=== PATIENT | female | born 1980 | race Caucasian/White ===

== ENCOUNTER 2018-12-11 10:57 | Emergency (ER) | payer BC ==
[~2018-12-11] VITALS: Ht 165.1 cm; Wt 93.0 kg
[~2018-12-11 10:57] MED LIST: BUPROPION XL150 MG PO; EFFEXOR XR75 MG PO; ESCITALOPRAM OX20 MG PO; IBUPROFEN800 MG PO; KEFLEX500 MG PO; METFORMIN HCL500 MG PO; MIRENA1 EACH IY; NORCO 5-325 TA1 EACH PO; PHENAZOPYRIDIN200 MG PO
[2018-12-11] MEDS ORDERED: NORCO 5-325 TA1 EACH PO (16:17)
== END 2018-12-11 16:39 | disposition home or self-care (01) ==
LOC: ED 10:57
DX: M54.5 Low back pain (principal)
CPT/HCPCS: 72100; 99283-25; J1100

== ENCOUNTER 2024-05-24 08:48 | Day surgery (SDC) | payer OTHER ==
[~2024-05-24] VITALS: Ht 165.1 cm; Wt 93.1 kg
--- NOTE | ~2024-05-24 | OR ---
[facility] [address], [place] [address] Draft DATE OF OPERATION: 05/24/2024 SURGEON: Zahida Dash MD PREOPERATIVE DIAGNOSES: 1. Gastroesophageal reflux, persistent. 2. Colon screening. POSTOPERATIVE DIAGNOSES: 1. 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 2. Normal colon to cecum. PROCEDURES: 1. Esophagogastroduodenoscopy with biopsy. 2. Total colonoscopy to cecum. ANESTHESIA: Intravenous sedation; fentanyl 200 mcg and Versed 10 mg. INDICATION: This 43-year-old white woman is a patient of Konstantin Hale. She has issues related to gastroesophageal reflux. She has no associated dysphagia. She is on omeprazole, but continues to have "constant reflux." She is 219 pounds with a BMI of 36.4. As regard to the colon, she has family history of colon cancer in her maternal grandmother. She is referred for colon screening on the basis of her age predominantly. She has no symptoms of bleeding, diarrhea, or constipation currently. She understands the risk of upper endoscopy and colonoscopy and wished to proceed with them. FINDINGS: Upper endoscopy demonstrated a sizable hiatal hernia as well as distal esophagitis and Thakkar's epithelium. There was no other finding of concern. CLOtest was negative. On colonoscopy, complete colonoscopy was undertaken of the cecum. Her prep was generally good without much solid material. She did have a considerable number of very tiny seeds which on several occasions, though in aggregate she had no evidence of polyps, diverticulosis, colitis, or cancer. DESCRIPTION OF PROCEDURE: The patient was taken to the endoscopy suite and placed in the lateral decubitus position after undergoing lidocaine hypopharyngeal anesthesia. A bite block was placed. PATIENT NAME: STORMY DENTON OPERATIVE REPORT DATE OF : 76 REPORT #: [id number] PHYSICIAN: ZAHIDA DASH MD PCP: KONSTANTIN HALE PAC REPORT IS CONFIDENTIAL AND NOT TO BE RELEASED WITHOUT AUTHORIZATION [facility] [address], [place] [address] Draft An intravenous sedation induced to the point of slurred speech and nystagmus with full cardiopulmonary monitoring. An Olympus video upper endoscope was passed in the hypopharynx. The vocal cords were normal. Scope was advanced to the esophagus, throughout its length it was normal except in the distal portion where quite obviously noted was Thakkar's epithelium. Narrow-band imaging confirmed this as well. This was not extensive. Scope was passed into the stomach which was insufflated with air. Rugal folds were normal. Pylorus was normal. Scope was passed through into the duodenum, which was also normal. Biopsies were taken of the duodenum to assess for celiac disease. The scope was withdrawn and biopsies taken of the antrum for both MIKEL and pathologic testing. Retroflexed view showed a hiatal hernia, [id number] in size. The scope was withdrawn to the distal esophagus where biopsies obtained of the esophageal mucosa concordant to Thakkar's epithelium. The mid esophagus was biopsied as well. Scope was withdrawn and removed showing no other abnormality. Plans were then made for colonoscopy. Additional sedation was given. A digital rectal examination performed showing no sign of neoplasm. An Olympus video colonoscope was passed in the rectum and manipulated throughout the colon. Ultimately, the cecum was fully intubated. Irrigation was undertaken. The scope was carefully withdrawn. She had minute tiny seed particles throughout the colon which caused obstructive issues related to the valve of the scope, which was changed out a few times, but with irrigation and close inspection, entire colon was evaluated fully showing no sign of diverticular formation, colitis, cancer or polyps. The rectum was normal as well. The scope was removed and the patient was taken to the recovery room in good condition. CONCLUDING DIAGNOSES: 1. Normal colon. Recommend repeat colonoscopy in 10 years. 2. Hiatal hernia with Thakkar esophagus. At minimum, the patient should continue on PPI medication. She should have repeat upper endoscopy in 3 to 5 years based on the Thakkar's epithelium. We will see her back in the office and review her pathology reports in the near future. Weight loss would be beneficial for her reflux issues and she may ultimately require anti-reflux operation. MD CHRISTIANO Villagomez/MODL /[id number] PATIENT NAME: STORMY DENTON OPERATIVE REPORT DATE OF : 76 REPORT #: [id number] PHYSICIAN: ZAHIDA DASH MD PCP: KONSTANTIN HALE PAC REPORT IS CONFIDENTIAL AND NOT TO BE RELEASED WITHOUT AUTHORIZATION [address] [address] Draft cc: LILIANA Kate Copies: ~ PATIENT NAME: STORMY DENTON OPERATIVE REPORT DATE OF : 76 REPORT #: [id number] PHYSICIAN: ZAHIDA DASH MD PCP: KONSTANTIN HALE PAC REPORT IS CONFIDENTIAL AND NOT TO BE RELEASED WITHOUT AUTHORIZATION
[~2024-05-24 08:48] MED LIST changes: +BUSPIRONE HCL5 GM; +DICLOFENAC SODI75 MG PO; +HYDROCODON-ACE1 EA11 PO; +IBLOOD GLUCOSE TEST STRIP 1 EA TEST VI PRN; +LACTATED RINGER'S 1,000 ML IV SCH; +LIDOCAINE HCL 1% 5 ML SDV INJ ONE; +LIDOCAINE HCL 4% 50 ML BTL TOP SCH; +MIDAZOLAM HCL 5 MG/5 ML VIAL IV PRN; +OMEPRAZOLE40 MG PO; +VENTOLIN HFA18 GM INH; +ZYRTEC10 MG; +fentaNYL citrate 100 MCG/2 ML VIAL IV PRN
[2024-05-24] MEDS ORDERED: ZESTRIL5 MG PO (09:29)
[2024-05-24 09:36] VITALS: BP 104/62
[2024-05-24] MEDS ORDERED: fentaNYL citrate 100 MCG/2 ML VIAL ONE (10:35)
[2024-05-24] MEDS ORDERED: MIDAZOLAM HCL 5 MG/5 ML VIAL ONE (10:35)
[2024-05-24] MEDS ORDERED: MIDAZOLAM HCL 2 MG/2 ML VIAL ONE (11:28)
--- NOTE | 2024-05-24 11:50 | NUR ---
05/24/24 1150 Michelle Mcarthur 1142- PT ARRIVES TO PACU ASLEEP. PT IS AROUSABLE TO STIMULI. PT DENIES ANY PAIN OR NAUSEA. RESP EVEN AND UNLABORED. OXYGEN SAT HIGH 90'S TO 100% ON 3L VIA CO2 NC.
[2024-05-24 12:37] VITALS: BP 109/66
--- NOTE | 2024-05-28 17:09 | PATH ---
[facility] [address] [place], [place] [address] Signed SPECIMEN(S): A DUODENAL BIOPSY SPECIMEN(S): B ANTRUM BIOPSY SPECIMEN(S): C LOWER ESOPHAGEAL BIOPSY SPECIMEN(S): D MIDDLE ESOPHAGEAL BIOPSY SPECIMEN SOURCE: A. DUODENAL BIOPSY B. ANTRUM BIOPSY C. LOWER ESOPHAGEAL BIOPSY D. MIDDLE ESOPHAGEAL BIOPSY CLINICAL HISTORY: Initial screening colonoscopy, hiatal hernia, Thakkar's esophagus FINAL PATHOLOGIC DIAGNOSIS: A. Duodenal biopsy: - Benign duodenal mucosa, negative for specific diagnostic abnormality. B. Antrum biopsy: - Benign gastric mucosa with focal slight chronic inflammation. - Negative for evidence of Helicobacter organisms on routine HE-stained sections. C. Lower esophageal biopsy: - Benign esophageal mucosa with reactive features, negative for increased epithelial eosinophils. D. Mid esophageal biopsy: - Benign esophageal mucosa, negative for increased epithelial eosinophils. JVR:clv MICROSCOPIC EXAMINATION: Histologic sections of all submitted blocks are examined by light microscopy. These findings, together with the gross examination, support the pathologic diagnosis. GROSS DESCRIPTION: A. The specimen, labeled and designated "Smidt, duodenal biopsy," is received in formalin and consists of two harden soft tissue fragments, ranging from 0.2-0.4 cm. Entirely submitted in (A1). B. The specimen, labeled and designated "Smidt, antrum biopsy," is received in formalin and consists of one harden soft tissue fragment, 0.8 cm. Entirely submitted in (B1). C. The specimen, labeled and designated "Smidt, lower esophageal biopsy," is PATIENT NAME: SMIDT,STORMY TIFFANY PATHOLOGY DATE OF : 76 REPORT #: [id number] PHYSICIAN: MARTI BERGERON PCP: KONSTANTIN HALE PAC REPORT IS CONFIDENTIAL AND NOT TO BE RELEASED WITHOUT AUTHORIZATION [facility] [address] [place], [place] [address] Signed received in formalin and consists of four harden soft tissue fragments, ranging from 0.2-0.5 cm. Entirely submitted in (C1). D. The specimen, labeled and designated "Smihusam, middle esophageal biopsy," is received in formalin and consists of three harden soft tissue fragments, ranging from 0.3-0.4 cm. Entirely submitted in (D1). VB (under the direct supervision of a pathologist) The Gross Description was prepared using a voice recognition system. The report was reviewed for accuracy; however, sound-alike word errors, addition and/or deletions may occur. If there is any question about this report, please contact Client Services. PERFORMING LABORATORY: Technical component was performed by [facility], [address] [place] [id number] (CLIA# [id number]). Professional interpretation was performed by [email or web address], [address] [place] [id number] (CLIA#: [id number]). Diagnostician: Frederick Carrillo MD Pathologist Electronically Signed 05/28/2024 Copies: ~ PATIENT NAME: STORMY DENTON PATHOLOGY DATE OF : 76 REPORT #: [id number] PHYSICIAN: MARTI BERGERON PCP: KONSTANTIN HALE PAC REPORT IS CONFIDENTIAL AND NOT TO BE RELEASED WITHOUT AUTHORIZATION
== END 2024-05-24 12:42 | disposition home or self-care (01) ==
LOC: OPS 08:48 → DS 08:49 → OPS 10:15 → DS 10:55 → OPS 11:15
PROVIDERS: ATTEND Surgery
PROC: 0DJD8ZZ Inspection of Lower Intestinal Tract, Via Natural or Artificial Opening Endoscopic (ICD-10-PCS; 2024-05-24)
PROC: 0DB98ZX Excision of Duodenum, Via Natural or Artificial Opening Endoscopic, Diagnostic (ICD-10-PCS; principal; 2024-05-24 10:15)
PROC: 0DB58ZX Excision of Esophagus, Via Natural or Artificial Opening Endoscopic, Diagnostic (ICD-10-PCS; 2024-05-24 10:15)
DX: Z12.11 Encounter for screening for malignant neoplasm of colon (principal); K44.9 Diaphragmatic hernia without obstruction or gangrene; K22.70 Barrett's esophagus without dysplasia; K21.00 Gastro-esophageal reflux disease with esophagitis, without bleeding; K31.89 Other diseases of stomach and duodenum; I10 Essential (primary) hypertension; Z80.0 Family history of malignant neoplasm of digestive organs; Z90.49 Acquired absence of other specified parts of digestive tract; Z79.899 Other long term (current) drug therapy
CPT/HCPCS: 84703; 99153; G0500; J2250; J3010